=== PATIENT | female | born 1990 | race Caucasian/White ===

== ENCOUNTER 2021-10-15 05:26 | Inpatient (IN) | payer OTHER, SELFPAY ==
[2021-10-13 11:45] LABS: Hemoglobin 12.8 g/dL (12.0-15.5); Mean Corpuscular Hemoglobin 30.4 pg (27.0-33.0); Mean Corpuscular Volume 89.5 fl (81.6-98.3); Platelet Count 202 10x3/uL (150-450); RBC Distribution Width 13.3 % (11.5-14.5); Red Blood Cell (RBC) Count 4.21 10x6/uL (3.90-5.03); White Blood Cell (WBC) Count 9.9 10x3/uL (3.5-10.5)
[2021-10-13 12:20] LABS: Hep B Surf Ag Non-Reactive S/CO (NonReactive)
[2021-10-13 12:21] LABS: Syphilis Antibody Nonreactive (Nonreactive); Syphilis Antibody Index 0.03 S/CO (<1.00 Non-Reactive)
[2021-10-15] MEDS ORDERED: ceFAZolin 2 GM/Dextrose 50 ML 2 GM in Premix Bag 1 BAG IVPB SCH (05:28)
[2021-10-15] MEDS ORDERED: Bicitra 30 ML UDCUP PO PRN (05:28)
[2021-10-15] MEDS ORDERED: Lactated Ringer's 1,000 ML IV SCH (05:28)
[2021-10-15] MEDS ORDERED: Ondansetron PF 4 MG/2 ML Vial IVP PRN ×3 (05:28→09:04)
[2021-10-15] MEDS ORDERED: hydrALAZINE 20 MG/ML VIAL SLOW IVP PRN ×2 (05:28→09:04)
[2021-10-15] MEDS ORDERED: Promethazine HCl 25 MG/ML VIAL IM PRN ×2 (05:28→09:00)
[2021-10-15] MEDS ORDERED: Famotidine/PF 20 mg/2ml Vial SLOW IVP PRN (05:28)
[2021-10-15 05:31] VITALS: BMI 38.1
[2021-10-15] MEDS ORDERED: CEFAZOLIN 2 GM in Sodium Chloride 0.9% 100 ML IVPB SCH (07:00)
[2021-10-15] MEDS ORDERED: Fentanyl 100 MCG/2 ML VIAL ONE (07:08)
[2021-10-15] MEDS ORDERED: Morphine PF 10 MG/10 ML VIAL ONE (07:08)
[2021-10-15] MEDS ORDERED: Ketorolac Tromethamine 30 MG/ML VIAL ONE (07:11)
[2021-10-15] MEDS ORDERED: Dexamethasone 4 mg/ml Vial ONE (07:12)
[2021-10-15] MEDS ORDERED: Ondansetron PF 4 MG/2 ML Vial ONE (07:12)
[2021-10-15] MEDS ORDERED: Oxytocin 10 UNITS/ML VIAL ONE (07:12)
[2021-10-15] MEDS ORDERED: PHENYLEPHRINE-NS 100 MCG/ML 10 ML SYRINGE ONE (07:12)
[2021-10-15] MEDS ORDERED: Moisturizing Cream (Eucerin) 113 GM JAR TOP PRN (09:00)
[2021-10-15] MEDS ORDERED: Ondansetron HCl/PF 4 MG/2 ML Vial IVP PRN (09:00)
[2021-10-15] MEDS ORDERED: Naloxone HCl 0.4 mg/ml Vial IVP PRN ×2 (09:00)
[2021-10-15] MEDS ORDERED: Ketorolac Tromethamine 30 MG/ML VIAL IVP SCH (09:00)
[2021-10-15] MEDS ORDERED: Fentanyl 100 MCG/2 ML VIAL SLOW IVP PRN (09:00)
[2021-10-15] MEDS ORDERED: Naloxone HCl 0.4 mg/ml Vial IV PRN (09:00)
[2021-10-15] MEDS ORDERED: Meperidine HCl/PF 25 MG/ML VIAL SLOW IVP PRN (09:00)
[2021-10-15] MEDS ORDERED: Promethazine HCl 25 MG SUPP PR PRN (09:00)
[2021-10-15] MEDS ORDERED: Communication Order-Pharmacy FS SCH (09:00)
[2021-10-15] MEDS ORDERED: diphenhydrAMINE 50 MG/ML VIAL IVP PRN (09:00)
[2021-10-15] MEDS ORDERED: HYDROcodone/Acetaminophen 5/325 mg Tablet PO PRN (09:04)
[2021-10-15] MEDS ORDERED: Misoprostol 200 MCG TAB PR PRN (09:04)
[2021-10-15] MEDS ORDERED: Acetaminophen 325 MG TAB PO PRN (09:04)
[2021-10-15] MEDS ORDERED: Lanolin Ointment 7 GM TUBE TOP PRN (09:04)
[2021-10-15] MEDS ORDERED: Boostrix 0.5 ML (Tdap) VIAL IM ONE (09:04)
[2021-10-15] MEDS ORDERED: diphenhydrAMINE 25 MG CAP PO PRN (09:04)
[2021-10-15] MEDS ORDERED: Zolpidem Tartrate 5 MG TAB PO PRN (09:04)
[2021-10-15] MEDS ORDERED: Bisacodyl 10 MG SUPP PR PRN (09:04)
[2021-10-15] MEDS ORDERED: NS w/ Oxytocin 30 units 500 ML IV SCH (09:15)
[2021-10-15] MEDS: Ketorolac Tromethamine 30 MG/ML VIAL IVP PRN ×2 (14:23→22:33)
[2021-10-15] MEDS: Lactated Ringer's 1,000 ML IV SCH ×2 (16:36→18:42)
[2021-10-15] MEDS: Docusate 100 MG CAP PO SCH (21:14)
[2021-10-15] MEDS: Ferrous Sulfate 325 MG TAB PO SCH (21:14)
[2021-10-16] MEDS: Lactated Ringer's 1,000 ML IV SCH ×3 (02:02→22:39)
[2021-10-16] MEDS: Ketorolac Tromethamine 30 MG/ML VIAL IVP PRN (05:53)
[2021-10-16] MEDS: Simethicone Chewable 80 MG TAB PO PRN ×2 (05:55→12:27)
[2021-10-16 06:08] LABS: Hemoglobin 10.2 g/dL (12.0-15.5); Mean Corpuscular Hemoglobin 29.7 pg (27.0-33.0); Mean Corpuscular Volume 89.8 fl (81.6-98.3); Mean Platelet Volume 12.3 fl (7.4-10.4); Platelet Count 158 10x3/uL (150-450); RBC Distribution Width 13.5 % (11.5-14.5); Red Blood Cell (RBC) Count 3.44 10x6/uL (3.90-5.03); White Blood Cell (WBC) Count 8.9 10x3/uL (3.5-10.5)
[2021-10-16] MEDS: HYDROcodone/Acetaminophen 5/325 mg Tablet PO PRN ×3 (06:12→22:33)
[2021-10-16] MEDS: Docusate 100 MG CAP PO SCH ×2 (10:04→21:07)
[2021-10-16] MEDS: Ferrous Sulfate 325 MG TAB PO SCH ×2 (10:04→22:39)
[2021-10-16] MEDS: Prenatal Vitamin 1 TAB PO SCH (10:04)
[2021-10-16] MEDS: Ibuprofen 800 MG TAB PO SCH ×2 (12:25→21:07)
[2021-10-17] MEDS: Lactated Ringer's 1,000 ML IV SCH ×2 (04:44→09:09)
[2021-10-17] MEDS: Ibuprofen 800 MG TAB PO SCH (05:14)
[2021-10-17 07:58] VITALS: BP 113/65; TEMP 98.1
[2021-10-17] MEDS: Ferrous Sulfate 325 MG TAB PO SCH (09:09)
[2021-10-17] MEDS: Prenatal Vitamin 1 TAB PO SCH (09:10)
[2021-10-17] MEDS: Docusate 100 MG CAP PO SCH (09:10)
== END 2021-10-17 12:55 | disposition home or self-care (01) | DRG 788 ==
LOC: CSHLD 05:26 → CSHPP 11:00
PROVIDERS: ADMIT Obstetrics & Gynecology; ATTEND Obstetrics & Gynecology
PROC: 10D00Z1 Extraction of Products of Conception, Low, Open Approach (ICD-10-PCS; principal; 2021-10-15)
DX: O34.211 Maternal care for low transverse scar from previous cesarean delivery (principal); Z3A.39 39 weeks gestation of pregnancy; Z37.0 Single live birth; Z20.822 Contact with and (suspected) exposure to COVID-19
CPT/HCPCS: 36415; 51702; 85027; 86780; 86850; 86900; 86901; 87340; J1100; J1885; J2274; J2405; J2590; J3010; S0028; U0003; U0005